=== PATIENT | female | born 1955 | race American Indian/Alaskan Native ===

== ENCOUNTER 2019-02-24 07:31 | Day surgery (SDC) | payer OTHER ==
[~2019-02-24] VITALS: Ht 157.5 cm; Wt 106.2 kg
[~2019-02-24 07:31] MED LIST: ACET250 PO; ACIDOPHILUS PR1 EAC1 PO; Aspirin EC81 MG PO; CHOL10002; Coq-10100 MG PO; Cymbalta60 MG PO; ETAN50I; ETAN50I SC; FOLI1 PO; Fish Oil 10001000 MG; LEFL20 PO; LOSA50 PO; MELA3; METTREX2.5 PO; Norco 5-325 Ta1 EACH PO; OXYB5 PO; Omeprazole20 M1 PO; POLY500 PO; TRAZ150T57 PO; Ultram50 MG; VENLAFAXINE HC150 MG PO
[2019-02-24] MEDS ORDERED: XELJANZ XR11 MG PO (08:41)
[2019-02-24] MEDS ORDERED: ATOR10 PO (08:41)
[2019-02-25] MEDS ORDERED: ONDA4ODT MM (20:16)
== END 2019-02-24 09:52 | disposition home or self-care (01) ==
LOC: ORSCSDS 07:31
PROVIDERS: Ophthalmology
PROC: 08RK3JZ Replacement of Left Lens with Synthetic Substitute, Percutaneous Approach (ICD-10-PCS; principal; 2019-02-24 09:00)
DX: H25.12 Age-related nuclear cataract, left eye (principal); I10 Essential (primary) hypertension; K21.9 Gastro-esophageal reflux disease without esophagitis; M06.9 Rheumatoid arthritis, unspecified; E66.01 Morbid (severe) obesity due to excess calories; Z68.41 Body mass index [BMI] 40.0-44.9, adult; Z87.891 Personal history of nicotine dependence; Z79.899 Other long term (current) drug therapy
CPT/HCPCS: J2250; J3010; J7120; V2632

== ENCOUNTER → 2019-10-27 | Outpatient (CLI) | payer OTHER ==
[~2019-10-27] MED LIST changes: +ATOR10 PO; +ONDA4ODT MM; +XELJANZ XR11 MG PO
== END | disposition home or self-care (01) ==
LOC: LAB 09:25 → LAB SHORT 09:25
DX: N18.2 Chronic kidney disease, stage 2 (mild) (principal)
CPT/HCPCS: 83735

== ENCOUNTER → 2023-08-01 | Outpatient (CLI) | payer MEDICARE, OTHER ==
[~2023-08-01] MED LIST changes: +DYAZIDE 37.5-21 EACH PO; +GLIP5 PO
[2023-08-01 13:39] LABS: BASOPHILS ABSOLUTE AUTO 0.04 K/mm3 (0.00-0.23); BASOPHILS PERCENT AUTO 1 % (0-2); EOSINOPHILS ABSOLUTE AUTO 0.09 K/mm3 (0.00-0.68); EOSINOPHILS PERCENT AUTO 1 % (0-6); Hematocrit 42.9 % (33.0-51.0); Hemoglobin 13.8 g/dL (11.5-16.0); IMMATURE GRAN ABSOLUTE AUTO 0.03 K/mm3 (0.00-0.10); IMMATURE GRAN PERCENT AUTO 0 % (0-1); LYMPHOCYTES ABSOLUTE AUTO 2.69 K/mm3 (0.84-5.20); LYMPHOCYTES PERCENT AUTO 33 % (21-46); MONOCYTES ABSOLUTE AUTO 0.59 K/mm3 (0.16-1.47); MONOCYTES PERCENT AUTO 7 % (4-13); Mean Corpuscular HGB 29.9 pg (26.0-34.0); Mean Corpuscular HGB Conc 32.2 g/dL (31.5-36.5); Mean Corpuscular Volume 93 fL (80-100); NEUTROPHILS ABSOLUTE AUTO 4.71 K/mm3 (1.96-9.15); NEUTROPHILS PERCENT AUTO 58 % (41-73); Platelet Count 143 K/mm3 (150-400); RDW Coefficient Variation 13.8 % (11.7-14.2); RDW Standard Deviation 46.8 fL (35.1-46.3); Red Blood Cell Count 4.62 M/mm3 (3.80-5.20); White Blood Cell Count 8.15 K/mm3 (4.00-11.30)
[2023-08-01 13:45] LABS: Albumin, Blood 3.6 g/dL (3.4-5.0); Bilirubin, Total 0.3 mg/dL (0.1-1.0); Bun/Creatinine Ratio 16.9 (12.0-20.0); Creatinine, Blood 1.6 mg/dL (0.40-1.00); Globulin, Blood 3.6 g/dL (2.2-4.0); Potassium, Blood 4.1 mmol/L (3.5-5.5); Thyroid Stimulating Hormone 1.382 uIU/mL (0.360-4.800); Total Protein, Blood 7.2 g/dL (6.4-8.2)
== END | disposition home or self-care (01) ==
LOC: LAB 13:18 → LAB SHORT 13:18
PROVIDERS: Chiropractor
DX: R53.83 Other fatigue (principal); R07.89 Other chest pain; R06.00 Dyspnea, unspecified
CPT/HCPCS: 80053; 83880; 84443; 84484; 85025; 85379

== ENCOUNTER 2024-03-12 11:02 | Day surgery (SDC) | payer MEDICARE, OTHER ==
[~2024-03-12] VITALS: Ht 154.9 cm; Wt 90.8 kg
[~2024-03-12 11:02] MED LIST changes: +Lactated Ringer's 1,000 ML IV ONE
[2024-03-12] MEDS ORDERED: BUPR75 (11:30)
[2024-03-12] MEDS ORDERED: ESCI10 (11:30)
[2024-03-12] MEDS ORDERED: PLAQUENIL200 M1 (11:31)
[2024-03-12] MEDS ORDERED: HUMIRA PEN40 MG/0.2 (11:32)
[2024-03-12] MEDS ORDERED: ALEN10 (11:32)
[2024-03-12] MEDS ORDERED: propofoL 50 ML IV ONE (12:25)
[2024-03-12] MEDS ORDERED: Lactated Ringer's 1,000 ML IV ONE (12:27)
[2024-03-12] MEDS ORDERED: Midazolam HCL 1 MG/ML 5MLVIAL ONE (13:15)
[2024-03-12] MEDS ORDERED: FentaNYL Citrate 50 MCG/ML 2 ML Injection ONE (13:15)
[2024-03-12] MEDS ORDERED: ePHEDrine Sulfate 50 MG/ML 1ML Injection ONE (13:25)
[2024-03-12] MEDS ORDERED: NS 500 ML IV ONE (14:13)
[2024-03-12 16:45] VITALS: BP 111/51
--- NOTE | 2024-03-12 16:49 | NUR ---
03/12/24 [id number] Anna Ulloa PT. ALSO C/O BACK PAIN RATING A "2". PT. CAME IN WITH BACK PAIN RATING A "2".
== END 2024-03-12 15:05 | disposition home or self-care (01) ==
LOC: ORSCSDS 11:02
PROVIDERS: Internal Medicine Gastroenterology
PROC: 0D757ZZ Dilation of Esophagus, Via Natural or Artificial Opening (ICD-10-PCS; principal; 2024-03-12 12:30)
PROC: 0DBK8ZX Excision of Ascending Colon, Via Natural or Artificial Opening Endoscopic, Diagnostic (ICD-10-PCS; principal; 2024-03-12 12:30)
PROC: 0DB78ZX Excision of Stomach, Pylorus, Via Natural or Artificial Opening Endoscopic, Diagnostic (ICD-10-PCS; principal; 2024-03-12 12:30)
PROC: 0DBL8ZX Excision of Transverse Colon, Via Natural or Artificial Opening Endoscopic, Diagnostic (ICD-10-PCS; principal; 2024-03-12 12:30)
DX: K22.70 Barrett's esophagus without dysplasia (principal); Z12.11 Encounter for screening for malignant neoplasm of colon; Z86.010 Personal history of colon polyps; K29.70 Gastritis, unspecified, without bleeding; D12.2 Benign neoplasm of ascending colon; D12.3 Benign neoplasm of transverse colon; K63.89 Other specified diseases of intestine; I12.9 Hypertensive chronic kidney disease with stage 1 through stage 4 chronic kidney disease, or unspecified chronic kidney disease; E11.22 Type 2 diabetes mellitus with diabetic chronic kidney disease; N18.31 Chronic kidney disease, stage 3a; E66.9 Obesity, unspecified; Z68.37 Body mass index [BMI] 37.0-37.9, adult; J44.9 Chronic obstructive pulmonary disease, unspecified; Z79.82 Long term (current) use of aspirin; E78.5 Hyperlipidemia, unspecified; I10 Essential (primary) hypertension; D63.1 Anemia in chronic kidney disease; Z87.891 Personal history of nicotine dependence; Z79.84 Long term (current) use of oral hypoglycemic drugs; Z79.899 Other long term (current) drug therapy
CPT/HCPCS: 82947; 88305; 88342; J2250; J2704; J3010; J7040; J7120

== ENCOUNTER 2025-01-14 09:25 | Day surgery (SDC) | payer MEDICARE, OTHER ==
[2025-01-14] VITALS (14 sets, daily range): BP systolic 111–130; BP diastolic 51–88
[~2025-01-14 09:25] MED LIST changes: +ALEN70 PO; +ASPIR 8181 M1 PO; +BUPR75; +BUPR75 PO; +CeFAZolin Sodium 2,000 MG in NS 100 ML IV SCH; +DOXY100 PO; +ESCI10; +FIBER; +FINA5 PO; +HUMIRA PEN40 MG/0.2; +HUMIRA40 MG/0.2 SC; +HYDCHL25 PO; +HYDSUL200 PO; +JARDIANCE25 MG PO; +K-Dur20 MEQ PO; -Lactated Ringer's 1,000 ML IV ONE; +Lactated Ringer's 1,000 ML IV SCH; +MINO2.5 PO; +MULTI-VITAMIN1 EAC2 PO; +OMEGA-3; +OMEP20ER PO; +TRAM50 PO; -TRAZ150T57 PO; +TRAZ50 PO; +UBID10 PO
[2025-01-14] MEDS ORDERED: propofoL 20 ML IV ONE (10:16)
[2025-01-14] MEDS ORDERED: Bupivacaine 0.5% HCl 5 MG/ML 30MLVIAL ONE (10:58)
[2025-01-14] MEDS ORDERED: FentaNYL Citrate 50 MCG/ML 2 ML Injection ONE ×2 (11:09→13:37)
[2025-01-14] MEDS ORDERED: Rocuronium Bromide 10 MG/ML 5ML Injection IV ONE (11:14)
[2025-01-14] MEDS ORDERED: Phenylephrine HCl 100 MCG/ML-NS 10MLSYR (1MG/10ML) ONE (11:31)
[2025-01-14] MEDS ORDERED: ePHEDrine Sulfate 50 MG/ML 1ML Injection ONE (11:36)
--- NOTE | 2025-01-14 11:38 | NUR ---
History, Chart, Medications and Allergies reviewed before start of procedure. Pre-Op teaching done. Pt verbalizes understanding. Patient States Post-Procedure ride home has been arranged.
[2025-01-14] MEDS ORDERED: FentaNYL Citrate 50 MCG/ML 2 ML Injection IV PRN ×2 (11:55→12:00)
[2025-01-14] MEDS ORDERED: HYDROmorphone HCl/Pf 1MG SYR IV PRN ×2 (12:00)
[2025-01-14] MEDS ORDERED: Albuterol 2.5 MG/3 ML VIAL INH PRN (12:00)
[2025-01-14] MEDS ORDERED: Metoclopramide HCl 5MG / ML 2ML Vial IV PRN (12:00)
[2025-01-14] MEDS ORDERED: Sugammadex Sodium 200 MG/2ML SDV (100 MG/ML) ONE (12:54)
[2025-01-14] MEDS ORDERED: OxyCODONE HCL 5 MG TAB PO PRN (13:00)
[2025-01-14] MEDS ORDERED: HYDROmorphone HCl/Pf 1MG SYR ONE (13:14)
[2025-01-14] MEDS ORDERED: Metoclopramide HCl 5MG / ML 2ML Vial ONE (13:40)
--- NOTE | 2025-01-14 14:52 | NUR ---
DISCHARGE PT A&OX4/VSS/RA/EMERALD PO H20 & CRACKERS, IV DC'D, DRESSED WITH ASSIST, DC INS PROVIDED TO PT AND , REP UNDERSTANDING, COPY SENT WITH AQUACEL DRESSING X2, LEFT VIA WC WITH RN TO GO HOME WITH /BOAT CLEANER WITH ALL PERSONAL POSSESSIONS.
== END 2025-01-14 23:00 | disposition home or self-care (01) ==
LOC: ORSCMMR 09:25 → ORD 11:00 → ORSCMMR 23:00
PROVIDERS: Orthopaedic Surgery
PROC: 0LMK0ZZ Reattachment of Left Hip Tendon, Open Approach (ICD-10-PCS; principal; 2025-01-14 11:00)
DX: S76.012A Strain of muscle, fascia and tendon of left hip, initial encounter (principal); M71.9 Bursopathy, unspecified; I12.9 Hypertensive chronic kidney disease with stage 1 through stage 4 chronic kidney disease, or unspecified chronic kidney disease; E11.22 Type 2 diabetes mellitus with diabetic chronic kidney disease; N18.9 Chronic kidney disease, unspecified; J44.9 Chronic obstructive pulmonary disease, unspecified; Z79.899 Other long term (current) drug therapy
CPT/HCPCS: 82947; A9270; C1713; J0690; J1171; J2371; J2704; J2765; J3010; J7120

== ENCOUNTER → 2025-07-06 | Outpatient (CLI) | payer MEDICARE, OTHER ==
[~2025-07-06] MED LIST changes: -CeFAZolin Sodium 2,000 MG in NS 100 ML IV SCH; -Lactated Ringer's 1,000 ML IV SCH
[2025-07-06 17:47] LABS: BASOPHILS ABSOLUTE AUTO 0.03 K/mm3 (0.00-0.23); BASOPHILS PERCENT AUTO 0 % (0-2); EOSINOPHILS ABSOLUTE AUTO 0.15 K/mm3 (0.00-0.68); EOSINOPHILS PERCENT AUTO 2 % (0-6); Hematocrit 36.2 % (33.0-51.0); Hemoglobin 11.8 g/dL (11.5-16.0); IMMATURE GRAN ABSOLUTE AUTO 0.02 K/mm3 (0.00-0.10); IMMATURE GRAN PERCENT AUTO 0 % (0-1); LYMPHOCYTES ABSOLUTE AUTO 3.41 K/mm3 (0.84-5.20); LYMPHOCYTES PERCENT AUTO 40 % (21-46); MONOCYTES ABSOLUTE AUTO 0.67 K/mm3 (0.16-1.47); MONOCYTES PERCENT AUTO 8 % (4-13); Mean Corpuscular HGB Conc 32.6 g/dL (31.5-36.5); Mean Corpuscular Volume 93 fL (80-100); NEUTROPHILS ABSOLUTE AUTO 4.28 K/mm3 (1.96-9.15); NEUTROPHILS PERCENT AUTO 50 % (41-73); NRBC ABSOLUTE 0.00 K/mm3 (0.00-0.02); NRBC Auto 0.0 /100 WBC (0.0-0.2); Platelet Count 144 K/mm3 (150-400); RDW Coefficient Variation 13.0 % (11.7-14.2); RDW Standard Deviation 44.0 fL (35.1-46.3)
[2025-07-06 18:35] LABS: Alanine Aminotransfer (ALT/SGP 41.0 U/L (12-78); Albumin, Blood 3.4 g/dL (3.4-5.0); Albumin/Globulin Ratio 1.2 (0.8-1.8); Anion Gap 6.0 mmol/L (3-11); Aspartate Aminotrans (AST/SGOT 26.0 U/L (12-37); Bilirubin, Total 0.3 mg/dL (0.1-1.0); Blood Urea Nitrogen 35.0 mg/dL (8-24); CO2, Blood 26.0 mmol/L (21-32); Calcium, Blood 8.6 mg/dL (8.5-10.1); Chloride, Blood 111.0 mmol/L (98-108); Creatinine, Blood 1.45 mg/dL (0.40-1.00); Globulin, Blood 2.9 g/dL (2.2-4.0); Glucose, Blood 91.0 mg/dL (70-99); Potassium, Blood 3.9 mmol/L (3.5-5.5); Sodium, Blood 139.0 mmol/L (136-145); Thyroid Stimulating Hormone 1.1 uIU/mL (0.360-4.800); Total Protein, Blood 6.3 g/dL (6.4-8.2)
== END ==
LOC: LAB SHORT 16:10 → LAB 16:10
PROVIDERS: Nurse Practitioner Family
DX: E11.22 Type 2 diabetes mellitus with diabetic chronic kidney disease (principal); N18.32 Chronic kidney disease, stage 3b; E11.59 Type 2 diabetes mellitus with other circulatory complications; R53.81 Other malaise
CPT/HCPCS: 80053; 83970; 84443; 85025

== ENCOUNTER 2025-09-07 06:12 | Day surgery (SDC) | payer MEDICARE, OTHER ==
[2025-09-07] VITALS (11 sets, daily range): BP systolic 92–140; BP diastolic 46–128
[~2025-09-07] VITALS: Ht 154.9 cm; Wt 81.1 kg
[~2025-09-07 06:12] MED LIST changes: -CHOL10002; +CeFAZolin Sodium 2,000 MG in NS 100 ML IV SCH; +Chlorhexidine Mouth Care 15 ML UDC MT SCH; -OMEGA-3; +OMEGA-3 PO; +Ropivacaine 0.5% HCl/Pf 123.125 MG,EPINEPHrine HCL 0.25 MG,Ketorolac Tromethamine 15 MG... INFIL SCH; +Tranexamic Acid 100 ML IV SCH; +VITAMIN D310 MC4 PO
[2025-09-07] MEDS ORDERED: FentaNYL Citrate 50 MCG/ML 5 ML Injection ONE (06:53)
[2025-09-07] MEDS ORDERED: Midazolam HCl 1MG / ML 2ML Vial ONE (06:54)
[2025-09-07] MEDS ORDERED: Magnesium Sulfate 500 MG / ML 2ML Vial ONE (06:57)
[2025-09-07] MEDS ORDERED: Rocuronium Bromide 10 MG/ML 5ML Injection IV ONE (07:26)
[2025-09-07] MEDS ORDERED: HYDROmorphone HCl/Pf 1MG SYR IV PRN ×2 (07:30→09:35)
[2025-09-07] MEDS ORDERED: Metoclopramide HCl 5MG / ML 2ML Vial IV PRN ×2 (07:35→09:40)
[2025-09-07] MEDS ORDERED: Morphine Sulfate 4 MG/1 ML Injection IV PRN (07:35)
[2025-09-07] MEDS ORDERED: FentaNYL Citrate 50 MCG/ML 2 ML Injection IV PRN ×2 (07:35)
[2025-09-07] MEDS ORDERED: Ondansetron HCl 2 MG / ML 2ML Vial IV PRN ×2 (07:35→09:35)
[2025-09-07] MEDS ORDERED: Ondansetron HCl 2 MG / ML 2ML Vial ONE (07:57)
[2025-09-07] MEDS ORDERED: Metoclopramide HCl 5MG / ML 2ML Vial ONE (07:57)
[2025-09-07] MEDS ORDERED: Phenylephrine HCl 100 MCG/ML-NS 10MLSYR (1MG/10ML) ONE (07:57)
[2025-09-07] MEDS ORDERED: Sugammadex Sodium 200 MG/2ML SDV (100 MG/ML) ONE (09:08)
[2025-09-07] MEDS ORDERED: Magnesium Hydroxide Conc 10 ML UDC PO PRN (09:25)
[2025-09-07] MEDS ORDERED: HYDROcodone 5-APAP 325 TAB PO PRN (09:35)
[2025-09-07] MEDS ORDERED: Prochlorperazine Edisylate 10 mg Vial IV PRN (09:35)
[2025-09-07] MEDS ORDERED: FLU VACC TS2025(65UP)/MF59C/PF 45 MCG/0.5 ML SYRINGE IM SCH (10:05)
--- NOTE | 2025-09-07 10:19 | NUR ---
ARRIVAL FROM PACU AT APPROX 1000. PT DENIES PAIN AT THIS TIME. DRESSING TO L HIP C/D/I WITH POLAR PACK IN PLACE.
[2025-09-07] MEDS ORDERED: Insulin Regular 100 UNIT/ML 10ML Vial SC SCH (11:30)
[2025-09-07] MEDS ORDERED: Ketorolac Tromethamine 15mg Vial IV SCH (12:00)
[2025-09-07] MEDS ORDERED: CeFAZolin Sodium 2,000 MG in NS 100 ML IV SCH (15:40)
[2025-09-08] MEDS ORDERED: Multivitamins 1 Tab PO SCH (09:00)
== END 2025-09-07 13:40 | disposition home or self-care (01) ==
LOC: ORSCMMR 06:12 → ORD 07:30 → SURS 09:42 → ORSCMMR 13:40
PROVIDERS: Orthopaedic Surgery
PROC: 0SRB0J9 Replacement of Left Hip Joint with Synthetic Substitute, Cemented, Open Approach (ICD-10-PCS; principal; 2025-09-07 07:30)
DX: M16.12 Unilateral primary osteoarthritis, left hip (principal); M87.9 Osteonecrosis, unspecified; E11.22 Type 2 diabetes mellitus with diabetic chronic kidney disease; I12.9 Hypertensive chronic kidney disease with stage 1 through stage 4 chronic kidney disease, or unspecified chronic kidney disease; N18.30 Chronic kidney disease, stage 3 unspecified; E66.9 Obesity, unspecified; Z68.33 Body mass index [BMI] 33.0-33.9, adult; Z79.899 Other long term (current) drug therapy; Z79.82 Long term (current) use of aspirin
CPT/HCPCS: 72170; 82947; 97116; 97162; 97530; A9270; C1713; C1776; J0166; J0690; J0735; J0780; J1815; J1885; J2250; J2371; J2405; J2704; J2765; J2795; J3010; J3475; J7120